=== PATIENT | female | born 1985 | race Caucasian/White ===

== ENCOUNTER 2018-12-28 20:37 | Emergency (ER) | payer OTHER ==
[~2018-12-28] VITALS: Ht 157.5 cm; Wt 86.4 kg
[2018-12-28 20:52] VITALS: BP 160/87
[2018-12-28 21:46] LABS: INFLUENZA TYPE A NEGATIVE FOR TYPE A (NEGATIVE); INFLUENZA TYPE B NEGATIVE FOR TYPE B (NEGATIVE)
== END 2018-12-28 23:00 | disposition left against medical advice (07) ==
LOC: EMS 20:38
DX: R05 Cough (principal); M79.10 Myalgia, unspecified site; R50.9 Fever, unspecified; Z90.49 Acquired absence of other specified parts of digestive tract; Z53.21 Procedure and treatment not carried out due to patient leaving prior to being seen by health care provider
CPT/HCPCS: 87804

== ENCOUNTER 2018-12-29 08:26 | Emergency (ER) | payer OTHER ==
[~2018-12-29] VITALS: Ht 157.5 cm; Wt 86.4 kg
[2018-12-29 08:31] VITALS: BP 119/91
[2018-12-29] MEDS ORDERED: IBUPROFEN 600 MG TABLET PO ONE (09:30)
[2018-12-29] MEDS ORDERED: GuaiFENesin/D-METHORPHAN [SUGAR-FREE] 200-20MG/10 ML SYRUP UDCUP PO ONE (09:30)
== END 2018-12-29 09:37 | disposition home or self-care (01) ==
LOC: EMS 08:27
DX: J06.9 Acute upper respiratory infection, unspecified (principal)